=== PATIENT | male | born 1995 | race Two or more races ===

== ENCOUNTER 2018-04-17 08:00 | Emergency (ER) | payer OTHER ==
[~2018-04-17] VITALS: Ht 177.8 cm; Wt 108.9 kg
== END 2018-04-17 16:11 | disposition home or self-care (01) ==
LOC: ER 08:00
DX: S01.82XA Laceration with foreign body of other part of head, initial encounter (principal); S00.83XA Contusion of other part of head, initial encounter; W18.39XA Other fall on same level, initial encounter; Y93.89 Activity, other specified; Y92.89 Other specified places as the place of occurrence of the external cause; Y99.8 Other external cause status